=== PATIENT | male | born 1995 | race Caucasian/White ===

== ENCOUNTER 2017-07-11 13:24 | Emergency (ER) | payer OTHER ==
[~2017-07-11] VITALS: Ht 172.7 cm; Wt 106.1 kg
[~2017-07-11 13:24] MED LIST: ALPR-475; CINA30TA2; CYCL-259 PO; PARI1CAP PO
[2017-07-11] MEDS ORDERED: PROM25SU34 RC (14:04)
[2017-07-11] MEDS ORDERED: ONDA4TAB10 PO (14:04)
[2017-07-11] MEDS ORDERED: METH500T97 PO (14:04)
[2017-07-11 15:34] VITALS: BP 122/78
== END 2017-07-11 15:36 | disposition home or self-care (01) ==
LOC: ED 14:40
DX: M54.5 Low back pain (principal)
CPT/HCPCS: 72128; 72131; 99284

== ENCOUNTER → 2018-04-19 | Outpatient (CLI) | payer OTHER ==
[~2018-04-19] MED LIST changes: +METH500T97 PO; +ONDA4TAB10 PO; +PROM25SU34 RC
== END | disposition home or self-care (01) ==
LOC: CARD 08:39
PROVIDERS: ATTEND Nurse Practitioner Family
DX: R47.81 Slurred speech (principal)
CPT/HCPCS: 95819